=== PATIENT | female | born 1965 | race Caucasian/White ===

== ENCOUNTER 2019-04-03 12:26 | Inpatient (IN) | payer OTHER ==
--- NOTE | 2019-04-03 15:35 | HP ---
Admitting History and Physical - Primary Care Physician PCP: Wang Stock - Admission History of Present Illness: 53-year-old right-handed female patient with extensive psych history presents to hospital for hospital admission elective for video EEG monitoring. Patient with this medical history significant for chronic migraine headache. Depression An anxiety complex partial seizure Pseudoseizure According to the patient last seizure was last month. Patient is on a combination of the Keppra and the Depakote. Patient also is under the care of psychiatrist. No report of any recent travel no report of any recent head trauma recently in the office patient underwent the procedure with the sphenopalatine ganglion injection patient tolerated the injection very well which to help her headache. History Source: Patient Limitations to Obtaining History: No Limitations - Past Medical History ...LMP Comment: no longer has menstruation - Advance Directives Advance Directives: Yes: Health Care Proxy - Smoking History Smoking history: Current every day smoker Have you smoked in the past 12 months: Yes - Alcohol/Substance Use Hx Alcohol Use: No Home Medications - Allergies Allergies/Adverse Reactions: Allergies Allergy/AdvReac Type Severity Reaction Status Date / Time No Known Drug Allergies Allergy Verified 04/03/19 15:30 vanilla Allergy Severe Hives Uncoded 04/03/19 14:38 - Home Medications Home Medications: Ambulatory Orders Clonazepam [Klonopin] 1 mg PO BID 04/03/19 Divalproex *ER* [Depakote *ER* -] 250 mg PO TID 04/03/19 Docusate Sodium [Colace] 100 mg PO BID 04/03/19 Gabapentin 400 mg PO BID 04/03/19 Gabapentin 800 mg PO DAILY 04/03/19 Levetiracetam 1,000 mg PO BID 04/03/19 Mirtazapine 30 mg PO HS 04/03/19 Naratriptan HCl [Amerge -] 2.5 mg PO PRN PRN 04/03/19 Quetiapine Fumarate [Seroquel] 600 mg PO HS 04/03/19 Tiotropium [place] [Spiriva] 18 mcg IH DAILY 04/03/19 Topiramate [Topamax -] 100 mg PO HS 04/03/19 Valacyclovir HCl [Valtrex -] 500 mg PO BID 04/03/19 traZODone HCL [Trazodone HCl] 100 mg PO HS 04/03/19 Family Medical History Family History: Unremarkable Family Hx Cancer: Grandmother (maternal) Review of Systems - Review of Systems Constitutional: reports: No Symptoms Eyes: reports: No Symptoms Neurological: reports: Headache, Incoordination, Numbness, Parasthesia Physical Examination Vital Signs: Vital Signs Temperature 98.3 F 04/03/19 14:22 Pulse Rate 102 H 04/03/19 14:22 Respiratory Rate 20 04/03/19 14:22 Blood Pressure 106/71 04/03/19 14:22 O2 Sat by Pulse Oximetry (%) Constitutional: Yes: Well Nourished Eyes: Yes: WNL HENT: Yes: WNL Neck: Yes: WNL Neurological: Yes: Alert, Oriented, Babinski negative, Unresponsive Problem List - Problems (1) Epilepsia Assessment/Plan: video EEG monitoring for 72 hours. Seizure precautions. Ativan when necessary seizure. Blood work that would includes CBC Chem-20 Depakote level Keppra level. Code(s): G40.909 - EPILEPSY, UNSP, NOT INTRACTABLE, WITHOUT STATUS EPILEPTICUS
[2019-04-03 17:05] LABS: HEMATOCRIT 35.4 % (32.4-45.2); HEMOGLOBIN 11.9 GM/dL (10.7-15.3); MCH 33.1 pg (25.7-33.7); MCHC 33.7 g/dl (32.0-36.0); MEAN CELL VOLUME 98.2 fl (80-96); MEAN PLT VOLUME 8.2 fl (7.5-11.1); PLATELET COUNT 207 K/MM3 (134-434); RDW 15.4 % (11.6-15.6); WHITE BLOOD COUNT 5.5 K/mm3 (4.0-10.0)
[2019-04-03 17:33] LABS: BILIRUBIN,DIRECT 0.1 mg/dL (0.0-0.2); BILIRUBIN,TOTAL 0.1 mg/dL (0.2-1); BLOOD UREA NITROGEN 12.7 mg/dL (7-18); CALCIUM 8.3 mg/dL (8.5-10.1); CREATININE 0.7 mg/dL (0.55-1.3); TOT PROT 6.2 g/dl (6.4-8.2)
[2019-04-03] MEDS ORDERED: FLU VACCINE QUAD 60 MCG/0.5 ML (MDV 19-20) IM ONE (18:00)
[2019-04-03] MEDS ORDERED: clonazePAM 0.5 MG TABLET PO PRN (19:11)
[2019-04-03] MEDS ORDERED: ACETAMINOPHEN/CAFFEINE/BUTALBITAL 1 TAB PO PRN (21:23)
[2019-04-03] MEDS: SULFAMETHOXAZOLE/TRIMETHOPRIM 800MG/160MG D.S. TABLET PO SCH (21:39)
[2019-04-03] MEDS: levETIRAcetam 500 MG TABLET (FP) PO SCH (21:40)
[2019-04-03] MEDS: traZODone HCL 50 MG TABLET (FP) PO SCH (21:40)
[2019-04-03] MEDS: VALPROATE SODIUM 250 MG/5 ML UNIT DOSE CUP PO SCH (21:42)
[2019-04-03] MEDS: QUEtiapine FUMARATE 300 MG TABLET PO SCH (21:42)
[2019-04-03] MEDS: CEPHALEXIN 250 MG/5 ML ORAL SUSPENSION PO SCH (22:29)
--- NOTE | 2019-04-04 09:16 | EKG ---
Test Reason : Blood Pressure : / mmHG Vent. Rate : 096 BPM Atrial Rate : 096 BPM P-R Int : 140 ms QRS Dur : 074 ms QT Int : 344 ms P-R-T Axes : 083 081 073 degrees QTc Int : 434 ms NORMAL SINUS RHYTHM SEPTAL INFARCT (CITED ON OR BEFORE 13-FEB-2011) ABNORMAL ECG WHEN COMPARED WITH ECG OF 13-FEB-2011 18:26, NO SIGNIFICANT CHANGE WAS FOUND Confirmed by MD Gonzalo, Karel ([id number]) on 04/04/2019 9:15:46 AM Referred By: Confirmed By:Karel Sánchez MD
[2019-04-04] MEDS ORDERED: PT OWN MED DRAWER 7, Y5N ONE (09:29)
[2019-04-04] MEDS: SULFAMETHOXAZOLE/TRIMETHOPRIM 800MG/160MG D.S. TABLET PO SCH ×2 (09:39→22:17)
[2019-04-04] MEDS: levETIRAcetam 500 MG TABLET (FP) PO SCH ×2 (09:39→22:17)
[2019-04-04] MEDS: CEPHALEXIN 250 MG/5 ML ORAL SUSPENSION PO SCH (09:39)
[2019-04-04] MEDS: VALPROATE SODIUM 250 MG/5 ML UNIT DOSE CUP PO SCH ×2 (11:17→22:16)
--- NOTE | 2019-04-04 18:59 | PN ---
Progress Note, Physician History of Present Illness: events noted chart review with Seen on the floor No report of any seizure-like activity no events problem patient still on the video EEG One headache yesterday - Current Medication List Current Medications: Active Medications Acetaminophen/Butalbital/Caffeine (Fioricet -) 1 tablet PO Q6H PRN PRN Reason: MIGRAINE Last Admin: 04/03/19 21:40 Dose: 1 tablet Cephalexin (Keflex Oral Suspension -) 500 mg PO DAILY [facility] Stop: 04/05/19 21:29 Last Admin: 04/04/19 09:39 Dose: 500 mg Clonazepam (Klonopin -) 0.5 mg PO BID PRN PRN Reason: ANXIETY Last Admin: 04/03/19 22:29 Dose: 0.5 mg Levetiracetam (Keppra -) 1,000 mg PO BID [facility] Last Admin: 04/04/19 09:39 Dose: 1,000 mg Quetiapine Fumarate (Seroquel -) 600 mg PO HS [facility] Last Admin: 04/03/19 21:42 Dose: 600 mg Trazodone HCl (Desyrel -) 100 mg PO [facility] Last Admin: 04/03/19 21:40 Dose: 100 mg Trimethoprim/Sulfamethoxazole (Bactrim Ds -) 1 each PO BID [facility] Last Admin: 04/04/19 09:39 Dose: 1 each Valproate Sodium (Depakene -) 250 mg PO BID [facility] Last Admin: 04/04/19 11:17 Dose: 250 mg - Objective Vital Signs: Vital Signs Temperature 98.6 F 04/04/19 14:00 Pulse Rate 90 04/04/19 14:00 Respiratory Rate 18 04/04/19 14:00 Blood Pressure 104/57 L 04/04/19 14:00 O2 Sat by Pulse Oximetry (%) 94 L 04/04/19 09:00 Constitutional: Yes: Well Nourished Eyes: Yes: WNL HENT: Yes: WNL Neurological: Yes: Alert, Oriented, Unresponsive ...Motor Strength: WNL Labs: CBC, BMP 04/03/19 16:40 04/03/19 16:40 Problem List - Problems (1) Epilepsia Assessment/Plan: surgical precautions. Magnesium. Check Keppra level. Check Depakote level. Headache diary Code(s): G40.909 - EPILEPSY, UNSP, NOT INTRACTABLE, WITHOUT STATUS EPILEPTICUS
[2019-04-04] MEDS ORDERED: ALBUTEROL SO4 2.5/IPRATROPIUM 0.5 INH SOL 3 ML VIAL.NEB. NEB PRN (20:57)
[2019-04-04] MEDS: traZODone HCL 50 MG TABLET (FP) PO SCH (22:16)
[2019-04-04] MEDS: QUEtiapine FUMARATE 300 MG TABLET PO SCH (22:17)
[2019-04-05] MEDS ORDERED: PT OWN MED DRAWER 7, Y5N ONE (09:38)
[2019-04-05] MEDS: NICOTINE 21 MG/24 HOURS TOPICAL PATCH TD SCH (09:42)
[2019-04-05] MEDS: SULFAMETHOXAZOLE/TRIMETHOPRIM 800MG/160MG D.S. TABLET PO SCH ×2 (09:42→21:53)
[2019-04-05] MEDS: CEPHALEXIN 250 MG/5 ML ORAL SUSPENSION PO SCH (09:43)
[2019-04-05] MEDS: levETIRAcetam 500 MG TABLET (FP) PO SCH ×2 (09:43→21:53)
[2019-04-05] MEDS: VALPROATE SODIUM 250 MG/5 ML UNIT DOSE CUP PO SCH ×2 (11:44→21:53)
[2019-04-05] MEDS: QUEtiapine FUMARATE 300 MG TABLET PO SCH (21:54)
[2019-04-05] MEDS: traZODone HCL 50 MG TABLET (FP) PO SCH (21:54)
[2019-04-06] MEDS: SULFAMETHOXAZOLE/TRIMETHOPRIM 800MG/160MG D.S. TABLET PO SCH (09:41)
[2019-04-06] MEDS: VALPROATE SODIUM 250 MG/5 ML UNIT DOSE CUP PO SCH (09:41)
[2019-04-06] MEDS: levETIRAcetam 500 MG TABLET (FP) PO SCH (09:41)
[2019-04-06] MEDS: NICOTINE 21 MG/24 HOURS TOPICAL PATCH TD SCH (09:42)
[2019-04-06 09:48] VITALS: BP 103/74; PULSE 103; TEMP 97.9
--- NOTE | 2019-04-06 11:25 | PN ---
Progress Note, Physician History of Present Illness: events noted Chart eviwed Alert Awake No seziur e ON VEEG - Current Medication List Current Medications: Active Medications Acetaminophen/Butalbital/Caffeine (Fioricet -) 1 tablet PO Q6H PRN PRN Reason: MIGRAINE Last Admin: 04/03/19 21:40 Dose: 1 tablet Albuterol/Ipratropium (Duoneb -) 1 amp NEB Q6H PRN PRN Reason: SHORTNESS OF BREATH/WHEEZING Last Admin: 04/04/19 22:32 Dose: 1 amp Clonazepam (Klonopin -) 0.5 mg PO BID PRN PRN Reason: ANXIETY Last Admin: 04/03/19 22:29 Dose: 0.5 mg Levetiracetam (Keppra -) 1,000 mg PO BID [facility] Last Admin: 04/06/19 09:41 Dose: 1,000 mg Nicotine (Nicoderm Patch -) 21 mg TD DAILY [facility] Last Admin: 04/06/19 09:42 Dose: 21 mg Quetiapine Fumarate (Seroquel -) 600 mg PO HS [facility] Last Admin: 04/05/19 21:54 Dose: 600 mg Trazodone HCl (Desyrel -) 100 mg PO [facility] Last Admin: 04/05/19 21:54 Dose: 100 mg Trimethoprim/Sulfamethoxazole (Bactrim Ds -) 1 each PO BID [facility] Last Admin: 04/06/19 09:41 Dose: 1 each Valproate Sodium (Depakene -) 250 mg PO BID [facility] Last Admin: 04/06/19 09:41 Dose: 250 mg - Objective Vital Signs: Vital Signs Temperature 97.9 F 04/06/19 09:47 Pulse Rate 103 H 04/06/19 09:47 Respiratory Rate 19 04/06/19 09:47 Blood Pressure 103/74 04/06/19 09:47 O2 Sat by Pulse Oximetry (%) 97 04/05/19 21:00 Constitutional: Yes: Well Nourished Eyes: Yes: WNL HENT: Yes: WNL Neurological: Yes: Alert, Oriented, Babinski negative ...Motor Strength: WNL Labs: CBC, BMP 04/03/19 16:40 04/03/19 16:40 Problem List - Problems (1) Epilepsia Assessment/Plan: Continue meds same Seziure precautions Headache diary DC home Code(s): G40.909 - EPILEPSY, UNSP, NOT INTRACTABLE, WITHOUT STATUS EPILEPTICUS
[2019-04-09 14:28] VITALS: BMI 16.7
== END 2019-04-06 12:33 | disposition home or self-care (01) | DRG 101 ==
LOC: J4S 12:33
PROVIDERS: ADMIT Psychiatry & Neurology Neurology; ATTEND Psychiatry & Neurology Neurology
PROC: 4A10X4Z Monitoring of Central Nervous Electrical Activity, External Approach (ICD-10-PCS; principal; 2019-04-03)
DX: G40.909 Epilepsy, unspecified, not intractable, without status epilepticus (principal); G43.909 Migraine, unspecified, not intractable, without status migrainosus; F41.8 Other specified anxiety disorders; F17.210 Nicotine dependence, cigarettes, uncomplicated
CPT/HCPCS: 36415; 80048; 80076; 85027; 93005; 93010; 94640; 95951; G0008; Q2036